=== PATIENT | male | born 1960 | race African-American/Black ===

== ENCOUNTER 2018-10-18 00:43 | Inpatient (IN) | payer MEDICAID, MEDICARE ==
[~2018-10-18] VITALS: Ht 190.5 cm; Wt 88.2 kg
[2018-10-18] MEDS ORDERED: PROPOFOL 1000 MG/ISO-OSM 100 ML IV ONE ×2 (00:51→06:06)
[2018-10-18] MEDS ORDERED: PROPOFOL 1000 MG/ISO-OSM 100 ML IV PRN ×3 (01:00→06:45)
[2018-10-18 01:15] LABS: HEMATOCRIT 40.4 % (41-53); HEMOGLOBIN 13.3 g/dL (13.5-17.5); MEAN CORPUSCULAR VOLUME 106 fL (80-100); PLATELET COUNT (AUTO) 192 K/uL (150-450); RED BLOOD CELL COUNT(AUTO) 3.81 MIL/uL (4.50-5.90); RED CELL DISTRIBUTION WIDTH 12.5 % (11.5-14.5)
[2018-10-18 01:22] LABS: APPEARANCE,URINE CLEAR (CLEAR); BILIRUBIN,URINE NEGATIVE (NEGATIVE); GLUCOSE, URINE (UA) >=1000 mg/dL (NEGATIVE); KETONES,URINE 15 mg/dL (NEGATIVE); LEUKOCYTE ESTERASE ,URINE NEGATIVE (NEGATIVE); NITRATE,URINE NEGATIVE (NEGATIVE); OCCULT BLOOD,URINE LARGE (NEGATIVE); PH,URINE 6.5 (5.0-8.0); PROTEIN,URINE SEE CONFIRM (NEGATIVE); UROBILINOGEN,URINE 0.2 mg/dL (<=1.0)
[2018-10-18 01:27] LABS: AMPHET/METH SCREEN,URINE NEGATIVE (NEGATIVE); BARBITURATE SCREEN, URINE NEGATIVE (NEGATIVE); BENZODIAZEPINES SCREEN,URINE NEGATIVE (NEGATIVE); CANNABINOID SCREEN,URINE NEGATIVE (NEGATIVE); COCAINE SCREEN,URINE NEGATIVE (NEGATIVE); METHADONE SCREEN, URINE NEGATIVE (NEGATIVE); OPIATE SCREEN,URINE NEGATIVE (NEGATIVE); PHENCYCLIDINE SCREEN,URINE NEGATIVE (NEGATIVE)
[2018-10-18 01:31] LABS: PROTHROMBIN TIME 10.3 SEC (9.4-11.6)
[2018-10-18 01:33] LABS: ABG A-A DIFF O2 454.2 mmHg (10-20.0); ABG BASE EXCESS -9.2 mmol/L (-2.0-3.0); ABG CARBOXYHEMOGLOBIN 1.5 % (0.0-1.5); ABG HCO3 17.2 mmol/L (22.0-26.0); ABG METHEMOGLOBIN 0.3 % (0.0-1.5); ABG OXYGEN CONTENT 18.9 mL/dL (15.0-23.0); ABG OXYGEN SATURATION 99.1 % (95.0-98.0); ABG OXYHEMOGLOBIN 97.3 % (94.0-100.0); ABG PCO2 51 mmHg (35-45); ABG TOTAL HEMOGLOBIN 13.5 G/dL (12.0-18.0); PO2, ARTERIAL BG 205.4 mmHg (84.0-92.0); SOURCE, BLOOD GAS ARTERIAL
[2018-10-18 01:35] LABS: ABG PH 7.188 (7.35-7.450); O2 DEVICE,BLOOD GAS VENTILATOR (ROOM AIR); PEEP,BG 5 cm H2O; SITE, BLOOD GAS LFT RADIAL; VT, ABG 550 ml
[2018-10-18 01:45] LABS: B-TYPE NATRIURETIC PEPTIDE > 5000 pg/mL (0-100)
[2018-10-18 01:52] LABS: BACTERIA,URINE None Seen /HPF (None Seen); WBC,URINE 0-2 /HPF (0-5)
[2018-10-18 01:53] LABS: FINE GRANULAR CASTS,URINE 0-2 /LPF (None Seen); SQUAMOUS EPITHELIAL CELL,UR Rare /LPF (None Seen)
[2018-10-18 01:54] LABS: SULFOSALICYLIC ACID,URINE 4+ (Negative)
[2018-10-18 01:58] LABS: INFLUENZA TYPE A NEGATIVE FOR TYPE A (NEGATIVE); INFLUENZA TYPE B NEGATIVE FOR TYPE B (NEGATIVE)
[2018-10-18] MEDS ORDERED: RAPID SEQUENCE KIT [RSI] 1 EACH KIT ONE (01:59)
[2018-10-18 02:00] LABS: ALANINE AMINOTRANSFERASE 46 U/L (12-78); ALBUMIN 2.5 g/dL (3.4-5.0); ALKALINE PHOSPHATASE 80 U/L (46-116); ANION GAP 18 mmol/L (8-16); ASPARTATE AMINOTRANSFERASE 117 U/L (15-37); BILIRUBIN,TOTAL 0.4 mg/dL (0.1-1.0); CALCIUM, TOTAL 8.2 mg/dL (8.8-10.5); CARBON DIOXIDE 19 mmol/L (22-29); CHLORIDE 94 mmol/L (98-107); CREATININE 9.25 mg/dL (0.60-1.30); GLOMERULAR FILTR. RATE CALC 7 mL/min (>60); LIPASE 26 U/L (73-393); POTASSIUM 4.7 mmol/L (3.5-5.1); SODIUM SERUM 131 mmol/L (136-145); TOTAL PROTEIN, SERUM 6.3 g/dL (6.4-8.2); UREA NITROGEN, BLOOD 67 mg/dL (7-18)
[2018-10-18] MEDS ORDERED: SODIUM BICARBONATE [ADULT] 8.4% 50 MEQ/50 ML SYRINGE IVP ONE (02:00)
[2018-10-18 02:03] LABS: LACTIC ACID 3.8 mmol/L (0.4-2.0)
[2018-10-18 02:04] LABS: GLUCOSE,RANDOM 618 mg/dL (70-110)
[2018-10-18 02:05] LABS: AMMONIA < 10 umol/L (11-32); CREATINE KINASE, TOTAL ONLY 4562 U/L (39-308); TROPONIN I 5.55 ng/mL (0.00-0.05)
[2018-10-18 02:11] LABS: BAND NEUTROPHILS % (MANUAL) 26 % (0-5); LYMPHOCYTES % (MANUAL) 26 % (22-44); MONOCYTES % (MANUAL) 8 % (2-9); SEGMENTED NEUTROPHILS % 40 % (40-70)
[2018-10-18] MEDS ORDERED: FUROSEMIDE 40 MG/4 ML VIAL IVP ONE (02:15)
[2018-10-18] MEDS ORDERED: MINERAL OIL/PETROLATUM,WHITE PF 3.5 GM OPHTHALMIC OINTMENT OU ONE (02:15)
[2018-10-18] MEDS ORDERED: METOPROLOL TARTRATE 5 MG/5 ML VIAL IVP ONE ×2 (02:15→05:00)
[2018-10-18 02:27] LABS: SPECIMENTYPE,BODY FLUID ASCITES
[2018-10-18] MEDS ORDERED: SODIUM CHLORIDE 0.9% 1,000 ML IV ONE (02:30)
[2018-10-18] MEDS ORDERED: INSULIN REGULAR, HUMAN 100 UNITS/ML IVP ONE ×2 (02:30→05:00)
[2018-10-18] MEDS ORDERED: PIPERACILLIN/TAZO 3.375 GM/D5W 50 ML IV ONE (02:30)
[2018-10-18] MEDS: ERYTHROMYCIN 0.5% 3.5 GM TUBE OPHTHALMIC OINTMENT OU SCH ×4 (03:03→20:00)
[2018-10-18 03:19] LABS: ABG A-A DIFF O2 520.8 mmHg (10-20.0); ABG BASE EXCESS -7.3 mmol/L (-2.0-3.0); ABG CARBOXYHEMOGLOBIN 1.2 % (0.0-1.5); ABG HCO3 19.1 mmol/L (22.0-26.0); ABG METHEMOGLOBIN 0.2 % (0.0-1.5); ABG OXYGEN CONTENT 18.5 mL/dL (15.0-23.0); ABG OXYGEN SATURATION 98.7 % (95.0-98.0); ABG OXYHEMOGLOBIN 97.3 % (94.0-100.0); ABG PCO2 39 mmHg (35-45); ABG PH 7.304 (7.35-7.450); ABG TOTAL HEMOGLOBIN 13.3 G/dL (12.0-18.0); PO2, ARTERIAL BG 152.1 mmHg (84.0-92.0); SOURCE, BLOOD GAS ARTERIAL; TEMPERATURE, FAHRENHEIT, BG 99.2 FAHREN (96.0-98.6)
[2018-10-18 03:20] LABS: O2 DEVICE,BLOOD GAS VENTILATOR (ROOM AIR); PEEP,BG 5 cm H2O; SITE, BLOOD GAS LFT RADIAL; VT, ABG 550 ml
[2018-10-18] MEDS ORDERED: ASPIRIN 300 MG RECTAL SUPPOSITORY PR ONE (03:30)
[2018-10-18 04:12] LABS: APPEARANCE,SPUN,BODY FLUID CLEAR (CLEAR); APPEARANCE,UNSPUN,BODY FLUID CLEAR (CLEAR); BODY FLUID RBC 2.2 /cu. mm.; COLOR,BODY FLUID LT YELLOW (LT YELLOW); NEUTROPHILS,BODY FLUID 46.7 %; TOTAL VOLUME,BODY FLUID 3 mL; WBC, BODY FLUID 20.56 /cu. mm.
[2018-10-18 04:13] LABS: MONOCYTES,BODY FLUID 13.3 %
[2018-10-18 04:15] LABS: OTHER CELLS,BODY FLUID NOTE
[2018-10-18] MEDS ORDERED: ONDANSETRON HCL 4 MG/2 ML VIAL IVP PRN ×2 (04:45→12:30)
[2018-10-18] MEDS ORDERED: 0.9% SODIUM CHLORIDE 10 ML SYRINGE IVP PRN (04:45)
[2018-10-18] MEDS ORDERED: ACETAMINOPHEN 325 MG TABLET PO PRN (04:45)
[2018-10-18] MEDS ORDERED: MetroNIDAZOLE 500 MG/NACL 100 ML IV ONE (04:45)
[2018-10-18] MEDS ORDERED: VECURONIUM BROMIDE 10 MG/VIAL IVP ONE ×2 (05:15→12:00)
[2018-10-18] MEDS ORDERED: PHENYLEPHRINE 200 MG/D5%-WATER 250 ML IV PRN (07:22)
[2018-10-18 09:29] LABS: ABG A-A DIFF O2 250.1 mmHg (10-20.0); ABG CARBOXYHEMOGLOBIN 0.6 % (0.0-1.5); ABG METHEMOGLOBIN 0.3 % (0.0-1.5); ABG OXYGEN CONTENT 17.6 mL/dL (15.0-23.0); ABG OXYGEN SATURATION 98.7 % (95.0-98.0); ABG OXYHEMOGLOBIN 97.8 % (94.0-100.0); ABG PCO2 35 mmHg (35-45); ABG TOTAL HEMOGLOBIN 12.6 G/dL (12.0-18.0); PO2, ARTERIAL BG 138.5 mmHg (84.0-92.0); SOURCE, BLOOD GAS ARTERIAL; TEMPERATURE, FAHRENHEIT, BG 99.6 FAHREN (96.0-98.6)
[2018-10-18 09:35] LABS: O2 DEVICE,BLOOD GAS VENTILATOR (ROOM AIR); PEEP,BG 5 cm H2O; SITE, BLOOD GAS RT RADIAL; VT, ABG 550 ml
[2018-10-18] MEDS ORDERED: INSULIN REGULAR, HUMAN 100 UNITS in SODIUM CHLORIDE 0.9% 99 ML IV PRN ×2 (10:18)
[2018-10-18] MEDS ORDERED: HEPARIN SODIUM,PORCINE 5,000 UNITS/ML VIAL IVP ONE (10:30)
[2018-10-18] MEDS ORDERED: DEXTROSE 50%-WATER 25 GM/50 ML SYRINGE IVP PRN (10:30)
[2018-10-18] MEDS ORDERED: HEPARIN SODIUM,PORCINE 5,000 UNITS/ML VIAL IVP PRN ×2 (10:30)
[2018-10-18] MEDS ORDERED: SODIUM CHLORIDE 0.9% 250 ML IV ONE (10:45)
[2018-10-18 10:57] LABS: PROTHROMBIN TIME 10.7 SEC (9.4-11.6)
[2018-10-18] MEDS: PIPERACILLIN SODIUM/TAZOBACTAM 2.25 GM in DEXTROSE 5%-WATER 50 ML IV SCH ×2 (11:38→18:22)
[2018-10-18] MEDS: PROPOFOL 1000 MG/ISO-OSM 100 ML IV PRN ×3 (11:41→20:02)
[2018-10-18] MEDS: HEPARIN SODIUM 25000 UNITS/D5W 250 ML IV PRN (11:44)
[2018-10-18] MEDS: LISINOPRIL 5 MG TABLET PO SCH (11:49)
[2018-10-18] MEDS: ASPIRIN 81 MG EC TABLET PO SCH (11:54)
[2018-10-18] MEDS: ATORVASTATIN CALCIUM 40 MG TABLET PO SCH (11:58)
[2018-10-18 12:00] VITALS: BP 98/57
[2018-10-18] MEDS ORDERED: ETOMIDATE 2 MG/ML 10 ML VIAL IVP ONE (12:00)
[2018-10-18] MEDS ORDERED: ZOLPIDEM TARTRATE 5 MG TABLET PO PRN (12:30)
[2018-10-18] MEDS ORDERED: MORPHINE SULFATE 4 MG/ML SYRINGE IVP PRN (12:30)
[2018-10-18] MEDS ORDERED: BISACODYL 10 MG RECTAL RECTAL SUPPOSITORY PR PRN (12:30)
[2018-10-18] MEDS ORDERED: HYDROCODONE/ACETAMINOPHEN 5-325 MG TABLET PO PRN (12:30)
[2018-10-18] MEDS ORDERED: MAGNESIUM HYDROXIDE SUSPENSION 30 ML UDCUP PO PRN (12:30)
[2018-10-18] MEDS: ACETAMINOPHEN 325 MG TABLET PO PRN ×2 (12:31→20:01)
[2018-10-18 14:00] LABS: GLUCOSE,POINT OF CARE 467 MG/DL (70-110)
[2018-10-18 14:01] LABS: GLUCOSE,POINT OF CARE 383 MG/DL (70-110)
[2018-10-18 16:00] VITALS: BP_SYST 112; BP_SYST 94; BP_DIAS 62; BP_DIAS 73
[2018-10-18] MEDS ORDERED: HEPARIN SODIUM,PORCINE 5,000 UNITS/ML VIAL SQ SCH (16:00)
[2018-10-18 16:23] LABS: CALCIUM, TOTAL 8.3 mg/dL (8.8-10.5); CREATININE 9.82 mg/dL (0.60-1.30); POTASSIUM 5.1 mmol/L (3.5-5.1)
[2018-10-18 20:00] VITALS: BP 112/78
[2018-10-18] MEDS: DOCUSATE SODIUM 100 MG CAPSULE PO SCH (20:01)
[2018-10-18 20:59] LABS: CREATININE 9.59 mg/dL (0.60-1.30); POTASSIUM 4.5 mmol/L (3.5-5.1)
[2018-10-18] MEDS ORDERED: GLUCAGON,HUMAN RECOMBINANT 1 MG VIAL IM PRN (23:30)
[2018-10-18] MEDS ORDERED: INSULIN LISPRO 100 UNITS/ML SQ PRN (23:30)
[2018-10-18] MEDS: INSULIN LISPRO 100 UNITS/ML SQ PRN (23:42)
[2018-10-18] MEDS ORDERED: DEXTROSE 50%-WATER 25 GM/50 ML SYG IVP PRN (23:45)
[2018-10-19] VITALS: BP 102/53
[2018-10-19] MEDS: INSULIN LISPRO 100 UNITS/ML SQ PRN ×5 (00:33→20:25)
[2018-10-19] MEDS ORDERED: SODIUM CHLORIDE 0.9% 250 ML IV ONE (02:15)
[2018-10-19] MEDS: PIPERACILLIN SODIUM/TAZOBACTAM 2.25 GM in DEXTROSE 5%-WATER 50 ML IV SCH ×3 (02:23→18:51)
[2018-10-19] MEDS: ERYTHROMYCIN 0.5% 3.5 GM TUBE OPHTHALMIC OINTMENT OU SCH ×4 (02:23→20:22)
[2018-10-19] MEDS: HEPARIN SODIUM 25000 UNITS/D5W 250 ML IV PRN (03:32)
[2018-10-19 03:37] LABS: ALBUMIN 1.8 g/dL (3.4-5.0); BILIRUBIN,TOTAL 0.3 mg/dL (0.1-1.0); CALCIUM, TOTAL 7.9 mg/dL (8.8-10.5); CREATININE 9.63 mg/dL (0.60-1.30); PHOSPHORUS 4.7 mg/dL (2.5-4.9); POTASSIUM 3.9 mmol/L (3.5-5.1); TOTAL PROTEIN, SERUM 5.5 g/dL (6.4-8.2)
[2018-10-19 04:00] VITALS: BP 105/56
[2018-10-19] MEDS: PROPOFOL 1000 MG/ISO-OSM 100 ML IV PRN (05:43)
[2018-10-19 08:00] VITALS: BP 132/68
[2018-10-19 08:51] LABS: GLUCOSE,POINT OF CARE 180 MG/DL (70-110)
[2018-10-19 08:51] LABS: GLUCOSE,POINT OF CARE 155 MG/DL (70-110)
[2018-10-19 08:51] LABS: GLUCOSE,POINT OF CARE 185 MG/DL (70-110)
[2018-10-19 08:51] LABS: GLUCOSE,POINT OF CARE 91 MG/DL (70-110)
[2018-10-19 08:51] LABS: GLUCOSE,POINT OF CARE 162 MG/DL (70-110)
[2018-10-19 08:51] LABS: GLUCOSE,POINT OF CARE 163 MG/DL (70-110)
[2018-10-19 08:56] LABS: GLUCOSE,POINT OF CARE 229 MG/DL (70-110)
[2018-10-19 08:56] LABS: GLUCOSE,POINT OF CARE 469 MG/DL (70-110)
[2018-10-19 08:56] LABS: GLUCOSE,POINT OF CARE 373 MG/DL (70-110)
[2018-10-19 08:56] LABS: GLUCOSE,POINT OF CARE 438 MG/DL (70-110)
[2018-10-19 08:56] LABS: GLUCOSE,POINT OF CARE 416 MG/DL (70-110)
[2018-10-19 08:56] LABS: GLUCOSE,POINT OF CARE 239 MG/DL (70-110)
[2018-10-19 08:56] LABS: GLUCOSE,POINT OF CARE 194 MG/DL (70-110)
[2018-10-19 08:57] LABS: GLUCOSE,POINT OF CARE 142 MG/DL (70-110)
[2018-10-19 08:57] LABS: GLUCOSE,POINT OF CARE 114 MG/DL (70-110)
[2018-10-19 08:57] LABS: GLUCOSE,POINT OF CARE 134 MG/DL (70-110)
[2018-10-19] MEDS: DOCUSATE SODIUM 100 MG CAPSULE PO SCH ×2 (08:59→20:22)
[2018-10-19] MEDS: ATORVASTATIN CALCIUM 40 MG TABLET PO SCH (08:59)
[2018-10-19] MEDS: ASPIRIN 81 MG EC TABLET PO SCH (08:59)
[2018-10-19] MEDS: LISINOPRIL 5 MG TABLET PO SCH (08:59)
[2018-10-19] MEDS ORDERED: PANTOPRAZOLE SODIUM 40 MG DR TABLET PO SCH (09:00)
[2018-10-19 11:07] LABS: CALCIUM, TOTAL 7.4 mg/dL (8.8-10.5); CREATININE 9.19 mg/dL (0.60-1.30); POTASSIUM 4.2 mmol/L (3.5-5.1)
[2018-10-19 12:00] VITALS: BP 117/74
[2018-10-19 12:44] LABS: GLUCOSE,POINT OF CARE 294 MG/DL (70-110)
[2018-10-19 12:44] LABS: GLUCOSE,POINT OF CARE 328 MG/DL (70-110)
[2018-10-19] MEDS ORDERED: VANCOMYCIN HCL 1 GM/D5% WATER 200 ML IV ONE (13:00)
[2018-10-19] MEDS ORDERED: VANCOMYCIN HCL 1 GM/D5% WATER 200 ML IV PRN (15:15)
[2018-10-19 15:37] LABS: CALCIUM, TOTAL 7.4 mg/dL (8.8-10.5); CREATININE 9.1 mg/dL (0.60-1.30)
[2018-10-19 16:00] VITALS: BP 150/83
[2018-10-19 17:04] LABS: GLUCOSE,POINT OF CARE 251 MG/DL (70-110)
[2018-10-19 20:00] VITALS: BP 142/87
[2018-10-20] VITALS (8 sets, daily range): BP systolic 132–201; BP diastolic 75–106
[2018-10-20] MEDS: HEPARIN SODIUM 25000 UNITS/D5W 250 ML IV PRN (01:33)
[2018-10-20] MEDS: PIPERACILLIN SODIUM/TAZOBACTAM 2.25 GM in DEXTROSE 5%-WATER 50 ML IV SCH ×3 (03:33→18:33)
[2018-10-20] MEDS: ERYTHROMYCIN 0.5% 3.5 GM TUBE OPHTHALMIC OINTMENT OU SCH ×4 (03:33→21:09)
[2018-10-20 05:09] LABS: CALCIUM, TOTAL 7.3 mg/dL (8.8-10.5); CREATININE 8.7 mg/dL (0.60-1.30); POTASSIUM 3.8 mmol/L (3.5-5.1)
[2018-10-20] MEDS: INSULIN LISPRO 100 UNITS/ML SQ PRN (06:37)
[2018-10-20 06:43] LABS: GLUCOSE,POINT OF CARE 250 MG/DL (70-110)
[2018-10-20 06:59] LABS: GLUCOSE,POINT OF CARE 338 MG/DL (70-110)
[2018-10-20 08:07] LABS: BASOPHILS % (AUTO) 0.3 % (0.0-2.0); EOSINOPHILS % (AUTO) 0.3 % (1.0-6.0); HEMATOCRIT 30.6 % (41-53); HEMOGLOBIN 10.2 g/dL (13.5-17.5); LYMPHOCYTES # (AUTO) 0.7 K/uL (1.0-4.8); LYMPHOCYTES % (AUTO) 4.8 % (22.0-44.0); MEAN CORPUSCULAR HEMOGLOBIN 34.9 pg (26.0-34.0); MEAN CORPUSCULAR HGB CONC 33.2 G/dL (31.0-37.0); MEAN CORPUSCULAR VOLUME 105 fL (80-100); MONOCYTES # (AUTO) 0.3 K/uL (0.1-1.0); MONOCYTES % (AUTO) 2.4 % (2.0-9.0); NEUTROPHILS # (AUTO) 12.9 K/uL (1.8-7.7); PLATELET COUNT (AUTO) 137 K/uL (150-450); RED BLOOD CELL COUNT(AUTO) 2.92 MIL/uL (4.50-5.90); RED CELL DISTRIBUTION WIDTH 12.7 % (11.5-14.5)
[2018-10-20 08:13] LABS: NEUTROPHILS % (AUTO) 92.2 % (40.0-70.0)
[2018-10-20] MEDS ORDERED: DEXTROSE 50%-WATER 25 GM/50 ML SYRINGE IVP PRN (08:15)
[2018-10-20] MEDS: ASPIRIN 81 MG EC TABLET PO SCH (08:42)
[2018-10-20] MEDS: ATORVASTATIN CALCIUM 40 MG TABLET PO SCH (08:43)
[2018-10-20] MEDS: AmLODIPine BESYLATE 5 MG TABLET PO SCH ×2 (08:43→21:09)
[2018-10-20] MEDS: LISINOPRIL 5 MG TABLET PO SCH (08:43)
[2018-10-20] MEDS: PANTOPRAZOLE SODIUM 40 MG/VIAL IVP SCH (08:44)
[2018-10-20] MEDS: DOCUSATE SODIUM 100 MG CAPSULE PO SCH ×2 (09:00→21:09)
[2018-10-20] MEDS ORDERED: *CLINICAL-RX DOSING [ENTER DRUG IN COMMENTS] CLINICAL ONE (09:00)
[2018-10-20] MEDS ORDERED: HEPARIN SODIUM,PORCINE 1,000 UNITS/ML VIAL IVP ONE ×3 (10:00→12:00)
[2018-10-20] MEDS: HEPARIN SODIUM,PORCINE 5,000 UNITS/ML VIAL SQ SCH ×2 (10:18→21:09)
[2018-10-20] MEDS: INSULIN GLARGINE,HUM.REC.ANLOG 100 UNITS/ML SQ SCH (10:19)
[2018-10-20 10:35] LABS: GLUCOSE,POINT OF CARE 364 MG/DL (70-110)
[2018-10-20 10:41] LABS: CALCIUM, TOTAL 7.5 mg/dL (8.8-10.5); CREATININE 8.61 mg/dL (0.60-1.30); POTASSIUM 3.8 mmol/L (3.5-5.1)
[2018-10-20] MEDS: LevETIRAcetam 1,000 MG in DEXTROSE 5%-WATER 100 ML IV SCH (11:06)
[2018-10-20] MEDS: PROPOFOL 1000 MG/ISO-OSM 100 ML IV PRN ×2 (11:12→17:18)
[2018-10-20] MEDS: INSULIN REGULAR, HUMAN 100 UNITS/ML SQ PRN ×2 (11:23→17:04)
[2018-10-20 11:29] LABS: GLUCOSE,POINT OF CARE 421 MG/DL (70-110)
[2018-10-20] MEDS ORDERED: MANNITOL 25%-12.5 GM/50 ML VIAL IVP ONE (12:00)
[2018-10-20] MEDS: DOXYCYCLINE HYCLATE 100 MG in DEXTROSE 5%-WATER 100 ML IV SCH (14:48)
[2018-10-20] MEDS: NICARDipine 20 MG/DEXT,ISO-OSM 200 ML IV PRN ×2 (16:52→20:12)
[2018-10-20] MEDS ORDERED: SODIUM CHLORIDE 0.9% 250 ML IV ONE (17:00)
[2018-10-20] MEDS: PHENYLEPHRINE 200 MG/D5%-WATER 250 ML IV PRN (22:30)
[2018-10-21] VITALS: BP 107/71
[2018-10-21] MEDS: INSULIN REGULAR, HUMAN 100 UNITS/ML SQ PRN ×5 (00:12→23:44)
[2018-10-21] MEDS: DOXYCYCLINE HYCLATE 100 MG in DEXTROSE 5%-WATER 100 ML IV SCH ×3 (03:00→14:17)
[2018-10-21 04:00] VITALS: BP 110/76
[2018-10-21] MEDS ORDERED: SODIUM CHLORIDE 0.9% 250 ML IV ONE ×2 (04:07→18:23)
[2018-10-21] MEDS: PIPERACILLIN SODIUM/TAZOBACTAM 2.25 GM in DEXTROSE 5%-WATER 50 ML IV SCH ×3 (04:17→18:16)
[2018-10-21] MEDS: ERYTHROMYCIN 0.5% 3.5 GM TUBE OPHTHALMIC OINTMENT OU SCH ×4 (04:20→20:19)
[2018-10-21 04:40] LABS: BASOPHILS % (AUTO) 0.2 % (0.0-2.0); EOSINOPHILS % (AUTO) 1.3 % (1.0-6.0); HEMATOCRIT 29.6 % (41-53); HEMOGLOBIN 9.8 g/dL (13.5-17.5); LYMPHOCYTES # (AUTO) 1.3 K/uL (1.0-4.8); LYMPHOCYTES % (AUTO) 10.1 % (22.0-44.0); MEAN CORPUSCULAR HEMOGLOBIN 34.1 pg (26.0-34.0); MEAN CORPUSCULAR HGB CONC 33.2 G/dL (31.0-37.0); MEAN CORPUSCULAR VOLUME 103 fL (80-100); MONOCYTES # (AUTO) 0.6 K/uL (0.1-1.0); MONOCYTES % (AUTO) 4.6 % (2.0-9.0); NEUTROPHILS # (AUTO) 10.6 K/uL (1.8-7.7); NEUTROPHILS % (AUTO) 83.8 % (40.0-70.0); PLATELET COUNT (AUTO) 166 K/uL (150-450); RED BLOOD CELL COUNT(AUTO) 2.88 MIL/uL (4.50-5.90); RED CELL DISTRIBUTION WIDTH 12.5 % (11.5-14.5)
[2018-10-21 04:43] LABS: ALBUMIN 1.7 g/dL (3.4-5.0); BILIRUBIN,TOTAL 0.3 mg/dL (0.1-1.0); CALCIUM, TOTAL 7.6 mg/dL (8.8-10.5); CREATININE 7.02 mg/dL (0.60-1.30); PHOSPHORUS 4.9 mg/dL (2.5-4.9); POTASSIUM 3.4 mmol/L (3.5-5.1); TOTAL PROTEIN, SERUM 4.9 g/dL (6.4-8.2)
[2018-10-21 08:00] VITALS: BP 84/63
[2018-10-21] MEDS: INSULIN GLARGINE,HUM.REC.ANLOG 100 UNITS/ML SQ SCH (09:00)
[2018-10-21] MEDS: AmLODIPine BESYLATE 5 MG TABLET PO SCH (09:00)
[2018-10-21] MEDS: DOCUSATE SODIUM 100 MG CAPSULE PO SCH ×2 (09:00→20:19)
[2018-10-21] MEDS: LISINOPRIL 5 MG TABLET PO SCH (09:00)
[2018-10-21] MEDS: ASPIRIN 81 MG EC TABLET PO SCH (09:02)
[2018-10-21] MEDS: PANTOPRAZOLE SODIUM 40 MG/VIAL IVP SCH (09:02)
[2018-10-21] MEDS: ATORVASTATIN CALCIUM 40 MG TABLET PO SCH (09:02)
[2018-10-21] MEDS: HEPARIN SODIUM,PORCINE 5,000 UNITS/ML VIAL SQ SCH ×2 (09:03→20:19)
[2018-10-21] MEDS: LevETIRAcetam 1,000 MG in DEXTROSE 5%-WATER 100 ML IV SCH (09:05)
[2018-10-21] MEDS ORDERED: INSULIN GLARGINE,HUM.REC.ANLOG 100 UNITS/ML SQ ONE (10:30)
[2018-10-21 10:48] LABS: GLUCOSE,POINT OF CARE 250 MG/DL (70-110)
[2018-10-21 10:48] LABS: GLUCOSE,POINT OF CARE 345 MG/DL (70-110)
[2018-10-21 10:50] LABS: GLUCOSE,POINT OF CARE 285 MG/DL (70-110)
[2018-10-21 12:00] VITALS: BP 120/87
[2018-10-21] MEDS ORDERED: HEPARIN SODIUM,PORCINE 1,000 UNITS/ML VIAL IVP ONE (15:11)
[2018-10-21 16:00] VITALS: BP 130/92
[2018-10-21] MEDS ORDERED: MANNITOL 25%-12.5 GM/50 ML VIAL IVP ONE (16:30)
[2018-10-21 17:40] LABS: GLUCOSE,POINT OF CARE 122 MG/DL (70-110)
[2018-10-21 18:59] LABS: GLUCOSE,POINT OF CARE 184 MG/DL (70-110)
[2018-10-21 20:00] VITALS: BP 87/59
[2018-10-21] MEDS ORDERED: PNEUMOCOCCAL VACCINE POLYVALENT 0.5 ML VIAL [PPSV23] IM ONE (20:00)
[2018-10-21 21:14] LABS: CALCIUM, TOTAL 8.2 mg/dL (8.8-10.5); CREATININE 5.93 mg/dL (0.60-1.30); POTASSIUM 3.9 mmol/L (3.5-5.1)
[2018-10-21] MEDS: MANNITOL 25%-12.5 GM/50 ML VIAL IVP SCH (22:59)
[2018-10-21] MEDS: PHENYLEPHRINE 200 MG/D5%-WATER 250 ML IV PRN (23:49)
[2018-10-22] VITALS: BP 128/76
[2018-10-22 00:04] LABS: GLUCOSE,POINT OF CARE 246 MG/DL (70-110)
[2018-10-22 01:59] LABS: CALCIUM, TOTAL 8.1 mg/dL (8.8-10.5); CREATININE 6.28 mg/dL (0.60-1.30)
[2018-10-22] MEDS: PIPERACILLIN SODIUM/TAZOBACTAM 2.25 GM in DEXTROSE 5%-WATER 50 ML IV SCH ×3 (02:15→19:04)
[2018-10-22] MEDS: ERYTHROMYCIN 0.5% 3.5 GM TUBE OPHTHALMIC OINTMENT OU SCH ×4 (02:17→20:16)
[2018-10-22] MEDS: DOXYCYCLINE HYCLATE 100 MG in DEXTROSE 5%-WATER 100 ML IV SCH ×2 (02:18→16:30)
[2018-10-22 04:00] VITALS: BP 94/54
[2018-10-22] MEDS: MANNITOL 25%-12.5 GM/50 ML VIAL IVP SCH (04:32)
[2018-10-22 05:25] LABS: CALCIUM, TOTAL 8.1 mg/dL (8.8-10.5); CREATININE 6.59 mg/dL (0.60-1.30); POTASSIUM 4.4 mmol/L (3.5-5.1); VANCOMYCIN,RANDOM 6.6 mcg/mL (25.0-50.0)
[2018-10-22] MEDS: INSULIN REGULAR, HUMAN 100 UNITS/ML SQ PRN ×3 (05:50→17:29)
[2018-10-22] MEDS ORDERED: SODIUM CHLORIDE 0.9% 100 ML ONE (06:20)
[2018-10-22 07:44] LABS: BASOPHILS % (AUTO) 0.7 % (0.0-2.0); EOSINOPHILS % (AUTO) 2.5 % (1.0-6.0); HEMATOCRIT 31.4 % (41-53); HEMOGLOBIN 10.6 g/dL (13.5-17.5); LYMPHOCYTES # (AUTO) 1.2 K/uL (1.0-4.8); LYMPHOCYTES % (AUTO) 15.3 % (22.0-44.0); MEAN CORPUSCULAR HEMOGLOBIN 35.5 pg (26.0-34.0); MEAN CORPUSCULAR HGB CONC 33.7 G/dL (31.0-37.0); MEAN CORPUSCULAR VOLUME 105 fL (80-100); MONOCYTES # (AUTO) 0.7 K/uL (0.1-1.0); MONOCYTES % (AUTO) 8.5 % (2.0-9.0); NEUTROPHILS # (AUTO) 5.8 K/uL (1.8-7.7); PLATELET COUNT (AUTO) 163 K/uL (150-450); RED BLOOD CELL COUNT(AUTO) 2.98 MIL/uL (4.50-5.90)
[2018-10-22 08:00] VITALS: BP 106/58
[2018-10-22 08:19] LABS: GLUCOSE,POINT OF CARE 391 MG/DL (70-110)
[2018-10-22] MEDS ORDERED: INSULIN GLARGINE,HUM.REC.ANLOG 100 UNITS/ML SQ SCH (09:00)
[2018-10-22] MEDS ORDERED: PARICALCITOL 5 MCG/1 ML VIAL IVP SCH (09:00)
[2018-10-22] MEDS: DOCUSATE SODIUM 100 MG CAPSULE PO SCH ×2 (09:00→20:15)
[2018-10-22 09:09] LABS: CALCIUM, TOTAL 8.7 mg/dL (8.8-10.5); CREATININE 3.35 mg/dL (0.60-1.30); POTASSIUM 4.3 mmol/L (3.5-5.1)
[2018-10-22] MEDS: ASPIRIN 81 MG EC TABLET PO SCH (09:37)
[2018-10-22] MEDS: HEPARIN SODIUM,PORCINE 5,000 UNITS/ML VIAL SQ SCH ×2 (09:37→20:18)
[2018-10-22] MEDS: ATORVASTATIN CALCIUM 40 MG TABLET PO SCH (09:37)
[2018-10-22] MEDS: PANTOPRAZOLE SODIUM 40 MG/VIAL IVP SCH (09:38)
[2018-10-22] MEDS: LevETIRAcetam 1,000 MG in DEXTROSE 5%-WATER 100 ML IV SCH (09:39)
[2018-10-22 10:11] LABS: LEGIONELLA PNEUMO AG URINE Negative (Negative); ORGANISM ID Not indicated.; S PNEUMO SOURCE Urine; STREP PNEUMONIAE AG URINE Negative (Negative); STREP.PNEUMO BODY FLUID CULT. Not Indicated
[2018-10-22] MEDS ORDERED: VANCOMYCIN HCL 1 GM/D5% WATER 200 ML IV ONE (10:30)
[2018-10-22] MEDS: INSULIN GLARGINE,HUM.REC.ANLOG 100 UNITS/ML SQ SCH (11:20)
[2018-10-22 12:00] VITALS: BP 101/55
[2018-10-22] MEDS ORDERED: HEPARIN SODIUM,PORCINE 1,000 UNITS/ML VIAL IVP ONE (12:00)
[2018-10-22] MEDS ORDERED: ALBUMIN HUMAN 25%-12.5GM/50ML IV BOTTLE IV ONE (12:00)
[2018-10-22 16:00] VITALS: BP 105/62
[2018-10-22] MEDS ORDERED: SODIUM CHLORIDE 0.9% 250 ML IV ONE (16:13)
[2018-10-22 18:44] LABS: GLUCOSE,POINT OF CARE 388 MG/DL (70-110)
[2018-10-22 18:44] LABS: GLUCOSE,POINT OF CARE 230 MG/DL (70-110)
[2018-10-22 18:44] LABS: GLUCOSE,POINT OF CARE 169 MG/DL (70-110)
[2018-10-22 20:00] VITALS: BP 78/41
[2018-10-23] MEDS: INSULIN REGULAR, HUMAN 100 UNITS/ML SQ PRN ×2 (00:16→06:50)
[2018-10-23] MEDS: PHENYLEPHRINE 200 MG/D5%-WATER 250 ML IV PRN ×2 (01:15→14:14)
[2018-10-23] MEDS: NOREPINEPHRINE BITARTRATE 8 MG in DEXTROSE 5%-WATER 242 ML IV PRN ×3 (01:39→16:36)
[2018-10-23] MEDS: PIPERACILLIN SODIUM/TAZOBACTAM 2.25 GM in DEXTROSE 5%-WATER 50 ML IV SCH ×2 (02:20→11:10)
[2018-10-23] MEDS: ERYTHROMYCIN 0.5% 3.5 GM TUBE OPHTHALMIC OINTMENT OU SCH ×4 (02:38→21:00)
[2018-10-23] MEDS: DOXYCYCLINE HYCLATE 100 MG in DEXTROSE 5%-WATER 100 ML IV SCH ×2 (02:38→15:13)
[2018-10-23 04:00] VITALS: BP 77/44
[2018-10-23] MEDS ORDERED: SODIUM CHLORIDE 0.9% 3,000 ML IV ONE (04:23)
[2018-10-23 04:54] LABS: GLUCOSE,POINT OF CARE 200 MG/DL (70-110)
[2018-10-23 04:54] LABS: GLUCOSE,POINT OF CARE 236 MG/DL (70-110)
[2018-10-23 05:15] LABS: HEMOGLOBIN 11.1 g/dL (13.5-17.5); MEAN CORPUSCULAR HEMOGLOBIN 34.7 pg (26.0-34.0); MEAN CORPUSCULAR HGB CONC 32.5 G/dL (31.0-37.0); MEAN CORPUSCULAR VOLUME 107 fL (80-100); PLATELET COUNT (AUTO) 156 K/uL (150-450); RED BLOOD CELL COUNT(AUTO) 3.19 MIL/uL (4.50-5.90); RED CELL DISTRIBUTION WIDTH 12.8 % (11.5-14.5)
[2018-10-23 05:29] LABS: CALCIUM, TOTAL 8.4 mg/dL (8.8-10.5); CREATININE 6.12 mg/dL (0.60-1.30); POTASSIUM 5.1 mmol/L (3.5-5.1); VANCOMYCIN,RANDOM 17.5 mcg/mL (25.0-50.0)
[2018-10-23 05:41] LABS: PLATELET MORPHOLOGY COMMENT GIANT PLTS PRESENT
[2018-10-23 05:46] LABS: BAND NEUTROPHILS % (MANUAL) 34 % (0-5); EOSINOPHILS % (MANUAL) 1 % (1-6); LYMPHOCYTES % (MANUAL) 23 % (22-44); METAMYELOCYTES % 1 % (0-0); MONOCYTES % (MANUAL) 3 % (2-9); MYELOCYTES % 1 % (0-0); SEGMENTED NEUTROPHILS % 37 % (40-70)
[2018-10-23 08:00] VITALS: BP 118/87
[2018-10-23] MEDS: ATORVASTATIN CALCIUM 40 MG TABLET PO SCH (08:45)
[2018-10-23] MEDS: PANTOPRAZOLE SODIUM 40 MG/VIAL IVP SCH (08:45)
[2018-10-23] MEDS: ASPIRIN 81 MG EC TABLET PO SCH (08:46)
[2018-10-23] MEDS: HEPARIN SODIUM,PORCINE 5,000 UNITS/ML VIAL SQ SCH ×2 (08:46→21:00)
[2018-10-23] MEDS: DOCUSATE SODIUM 100 MG CAPSULE PO SCH ×2 (08:46→21:00)
[2018-10-23] MEDS: LevETIRAcetam 1,000 MG in DEXTROSE 5%-WATER 100 ML IV SCH (08:47)
[2018-10-23] MEDS: INSULIN GLARGINE,HUM.REC.ANLOG 100 UNITS/ML SQ SCH (10:01)
[2018-10-23 11:24] LABS: GLUCOSE,POINT OF CARE 120 MG/DL (70-110)
[2018-10-23 12:00] VITALS: BP 92/56
[2018-10-23] MEDS ORDERED: VANCOMYCIN HCL 1 GM/D5% WATER 200 ML IV ONE (12:00)
[2018-10-23] MEDS ORDERED: HEPARIN SODIUM,PORCINE 1,000 UNITS/ML VIAL IVP ONE (12:30)
[2018-10-23] MEDS ORDERED: MANNITOL 25%-12.5 GM/50 ML VIAL IVP ONE (12:30)
[2018-10-23] MEDS ORDERED: ALBUMIN HUMAN 25%-12.5GM/50ML IV BOTTLE IV ONE (12:30)
[2018-10-23 14:39] LABS: GLUCOSE,POINT OF CARE 109 MG/DL (70-110)
[2018-10-23 16:00] VITALS: BP 117/50
[2018-10-23] MEDS: NAFCILLIN SODIUM 2 GM in DEXTROSE 5%-WATER 100 ML IV SCH ×2 (17:00→21:00)
[2018-10-23 20:00] VITALS: BP 132/72
== END 2018-10-23 17:50 | disposition expired | DRG 870 ==
LOC: EMS 00:46 → ICU 04:00
PROVIDERS: ADMIT Internal Medicine; ATTEND Internal Medicine
PROC: 5A1955Z Respiratory Ventilation, Greater than 96 Consecutive Hours (ICD-10-PCS; principal; 2018-10-18)
PROC: 0BH17EZ Insertion of Endotracheal Airway into Trachea, Via Natural or Artificial Opening (ICD-10-PCS; 2018-10-18)
PROC: 05HY33Z Insertion of Infusion Device into Upper Vein, Percutaneous Approach (ICD-10-PCS; 2018-10-19)
PROC: B54MZZA Ultrasonography of Right Upper Extremity Veins, Guidance (ICD-10-PCS; 2018-10-19)
DX: A41.1 Sepsis due to other specified staphylococcus (principal); R65.21 Severe sepsis with septic shock; G93.41 Metabolic encephalopathy; I21.4 Non-ST elevation (NSTEMI) myocardial infarction; J69.0 Pneumonitis due to inhalation of food and vomit; N18.6 End stage renal disease; E11.10 Type 2 diabetes mellitus with ketoacidosis without coma; J96.00 Acute respiratory failure, unspecified whether with hypoxia or hypercapnia; G93.6 Cerebral edema; I63.89 Other cerebral infarction; G93.5 Compression of brain; M62.82 Rhabdomyolysis; I50.20 Unspecified systolic (congestive) heart failure; I13.2 Hypertensive heart and chronic kidney disease with heart failure and with stage 5 chronic kidney disease, or end stage renal disease; Z99.2 Dependence on renal dialysis; R56.9 Unspecified convulsions; Z60.2 Problems related to living alone; E11.22 Type 2 diabetes mellitus with diabetic chronic kidney disease
CPT/HCPCS: 31500; 36569; 51702; 70450; 71250; 72192; 74018; 74150; 78606; 82805; 83605; 83735; 83930; 84100; 87040; 87070; 87081; 87205; 87340; 87449; 87804; 87899; 89051; 93005; 93306; 94002; 94003; 95816; 99291; 99292; A9521; C9113; G0378; G0480; G0482; J0712; J1644; J1815; J1940; J2150; J2270; J2370; J2501; J2543; J2704; J3370; J3490; J7030; J7050; J7060; P9047